=== PATIENT | female | born 1955 | race Caucasian/White ===

== ENCOUNTER 2021-07-02 10:08 | Observation (INO) ==
[2021-07-02 11:54] LABS: Basophils # 0.1 K/mcL (0.0-0.2); Basophils % 1.3 %; Eosinophils # 0.2 K/mcL (0.0-0.6); Eosinophils % 4.3 %; Hematocrit 39.9 % (35.3-44.9); Hemoglobin 12.8 g/dL (11.5-15.4); Immature Granulocytes % 0.6 % (0-4); Lymphocytes # 1.8 K/mcL (0.6-4.6); Lymphocytes % 33.6 %; Mean Corpuscular HGB Conc 32.1 g/dL (31.6-35.5); Mean Corpuscular Hemoglobin 29.2 pg (28.0-33.3); Mean Corpuscular Volume 91.1 fL (83.0-100.0); Mean Platelet Volume 10.3 fL (9.4-12.4); Monocytes # 0.6 K/mcL (0.0-1.3); Monocytes % 11.3 %; Neutrophils # 2.7 K/mcL (1.6-8.9); Platelet Count 270 K/mcL (140-400); Red Blood Count 4.38 M/mcL (3.82-4.97); Red Cell Distribution Width 13.5 % (11.5-14.5); Segmented Neutrophils % 48.9 %; White Blood Count 5.4 K/mcL (4.3-11.1)
[2021-07-02 12:15] LABS: BUN/Creatinine Ratio 17 (6-26); Blood Urea Nitrogen 15 mg/dL (8-23); Calcium 9.7 mg/dL (8.6-10.3); Carbon Dioxide 31 mEq/L (23-29); Chloride 105 mEq/L (98-107); Glucose 83 mg/dL (70-105); Osmolality,Calculated 292 (280-300); Potassium 3.9 mEq/L (3.5-5.1); Sodium 141 mEq/L (136-145); eGFR For African Americans > 60 (> 60); eGFR For Non-African Americans > 60 (> 60)
[2021-07-02] MEDS ORDERED: Aspirin 325 MG TABLET PO ONE (12:15)
[2021-07-02 12:16] LABS: Troponin I < 0.03 ng/mL (< 0.04)
[2021-07-02] MEDS ORDERED: Perflutren Lipid Microsphere 1.3 ML in 0.9 % Sodium Chloride 8.7 ML IVP PRN (14:33)
[2021-07-02] MEDS ORDERED: Melatonin 3 MG TABLET PO PRN (14:34)
[2021-07-02] MEDS ORDERED: Naloxone 0.4 MG/ML INJ IVP PRN (14:34)
[2021-07-02] MEDS ORDERED: Acetaminophen 325 MG TABLET PO PRN (14:34)
[2021-07-02] MEDS: *HR* Heparin 5,000 UNIT/ML VIAL SQ SCH (16:06)
[2021-07-02 17:52] LABS: Cholesterol 277 mg/dL (< 200); HDL Cholesterol 55 mg/dL (40-59); LDL Cholesterol,Calculated 162 mg/dL (< 100); Triglycerides 299 mg/dL (< 150)
[2021-07-03 02:43] LABS: Estimated Average Glucose 126 mg/dl
[2021-07-03] MEDS: *HR* Heparin 5,000 UNIT/ML VIAL SQ SCH (05:49)
[2021-07-03] MEDS ORDERED: Regadenoson 0.4 MG/5 ML SYRINGE IVP ONE (06:04)
[2021-07-03] MEDS ORDERED: Aspirin 81 MG TAB.CHEW PO SCH (09:00)
[2021-07-03] MEDS ORDERED: PARoxetine 20 MG TABLET PO SCH (09:00)
[2021-07-03 10:08] VITALS: BP 137/86; PULSE 61; TEMP 97.8; O2SAT 98
== END 2021-07-03 16:11 | disposition home or self-care (01) ==
LOC: EMEROOARM 10:08 → 3BNU 10:08 → SUATTDRO 14:07 → 3BNU 15:14
PROVIDERS: ADMIT Family Medicine; ATTEND Nurse Practitioner